=== PATIENT | male | born 1990 | race Caucasian/White ===

== ENCOUNTER 2016-12-18 01:58 | Emergency (ER) | payer OTHER ==
[2016-12-18 02:24] VITALS: BP 135/73; PULSE 75; TEMP 97.5
[2016-12-18] MEDS ORDERED: IBUPROFEN 400 MG TABLET (FP) PO ONE ×2 (02:29→02:36)
[2016-12-18] MEDS ORDERED: PENICILLIN V POTASSIUM 500 MG TABLET PO ONE (02:29)
--- NOTE | 2016-12-18 02:29 | PDOC ---
History of Present Illness - General History Source: Patient <Ayush Marks - Last Filed: 12/18/16 02:31> - General History Source: Patient Exam Limitations: No Limitations - History of Present Illness Initial Comments: 12/18/16 02:37 The patient is a 26 year old male with no significant past medical history who presents to the ED 1 day of toothache. Patient reports pain to tooth number 17, which he describes as throbbing in nature and 10/10, in severity. States he was chewing on a piece of candy when he subsequently broke his tooth. Admits to smoking. Denies fever, chills, or diaphoresis. The patient denies cough, SOB, chest pain, and palpitations. The patient denies abdominal pain, nausea, vomiting, and diarrhea. Allergies: NKDA Social History: Cigarette smoker. No alcohol or drug use reported. Past Surgical History: None reported PCP: Dr. Gino Hernández <Chio Zheng - Last Filed: 12/18/16 02:37> - General Chief Complaint: Toothache Stated Complaint: TOOTHACHE Time Seen by Provider: 12/18/16 02:26 Past History - Psycho/Social/Smoking Cessation Hx Suicidal Ideation: No Smoking History: Never smoked Have you smoked in the past 12 months: No Information on smoking cessation initiated: No Hx Alcohol Use: No Drug/Substance Use Hx: No <Ayush Marks - Last Filed: 12/18/16 02:31> <Chio Zheng - Last Filed: 12/18/16 02:37> - Past Medical History Allergies/Adverse Reactions: Allergies Allergy/AdvReac Type Severity Reaction Status Date / Time No Known Allergies Allergy Verified 12/18/16 02:21 Home Medications: Ambulatory Orders Ibuprofen 800 mg PO TID #30 tablet 12/18/16 Penicillin V Potassium [Pen Vee K -] 500 mg PO TID #30 tablet 12/18/16 Review of Systems - Review of Systems Able to Perform ROS?: Yes Comments:: 12/18/16 02:37 CONSTITUTIONAL: Absent: fever, no chills, no fatigue EYES: Absent: visual changes ENT: +pain to tooth number 17 Absent: ear pain, no sore throat CARDIOVASCULAR: Absent: chest pain, no palpitations RESPIRATORY: Absent: cough, no SOB GI: Absent: abdominal pain, no nausea, no vomiting, no constipation, no diarrhea GENITOURINARY: Absent: dysuria, no frequency, no hematuria MUSCULOSKELETAL: Absent: back pain, no arthralgia, no myalgia SKIN: Absent: rash NEURO: Absent: headache <Katherineana mariaPrakash roqueta - Last Filed: 12/18/16 02:37> *Physical Exam - Vital Signs Last Vital Signs Temp Pulse Resp BP Pulse Ox 97.5 F L 75 14 135/73 100 12/18/16 02:21 12/18/16 02:21 12/18/16 02:21 12/18/16 02:21 12/18/16 02:21 <Ayush Marks - Last Filed: 12/18/16 02:31> - Vital Signs Last Vital Signs Temp Pulse Resp BP Pulse Ox 97.5 F L 75 14 135/73 100 12/18/16 02:21 12/18/16 02:21 12/18/16 02:21 12/18/16 02:21 12/18/16 02:21 - Physical Exam Comments: 12/18/16 02:37 GENERAL: Well-appearing, well-nourished. No apparent distress. HEENT: Normocephalic, atraumatic. PERRL, EOM intact. Tooth 17 appears to be broken, but the surrounding gingiva is intact, no erythema, no drainage, no tenderness. CARDIOVASCULAR: Normal S1, S2. Regular rate and rhythm. PULMONARY: Clear to auscultation bilaterally. ABDOMEN: Soft, non-distended, non-tender. EXTREMITIES: Normal ROM in all four extremities. No gross deformities. SKIN: Warm, dry. No rash NEUROLOGICAL: No focal neurological deficits. <Chio Zheng - Last Filed: 12/18/16 02:37> Medical Decision Making - Medical Decision Making 12/18/16 02:32 Dr. Marks: The scribe's documentation has been prepared under my direction and personally reviewed by me in its entirery. I confirm that the note above accurately reflects all work, treatment, procedures, and medical decision making performed by me. <Ayush Marks - Last Filed: 12/18/16 02:31> *DC/Admit/Observation/Transfer - Discharge Dispostion Admit: No <Ayush Marks - Last Filed: 12/18/16 02:31> - Attestations Scribe Attestion: 12/18/16 02:37 Documentation prepared by Chio Zheng, acting as medical research tech for Ayush Marks MD/DO. <Chio Zheng - Last Filed: 12/18/16 02:37> Diagnosis at time of Disposition: Tooth ache - Discharge Dispostion Disposition: HOME Condition at time of disposition: Stable - Prescriptions Prescriptions: Ibuprofen 800 mg PO TID #30 tablet Penicillin V Potassium [Pen Vee K -] 500 mg PO TID #30 tablet - Referrals Referrals: Gino Hernández [Primary Care Provider] - - Patient Instructions Printed Discharge Instructions: DI for Dental Pain
== END 2016-12-18 02:43 | disposition home or self-care (01) ==
LOC: JER 01:58
DX: K08.89 Other specified disorders of teeth and supporting structures (principal); K03.81 Cracked tooth
CPT/HCPCS: 99282-25

== ENCOUNTER 2017-11-15 00:46 | Emergency (ER) | payer OTHER ==
--- NOTE | 2017-11-15 00:54 | PDOC ---
History of Present Illness - General Stated Complaint: JAW PAIN Time Seen by Provider: 11/15/17 00:53 History Source: Patient Exam Limitations: No Limitations - History of Present Illness Initial Comments: 11/15/17 01:48 Best Contact: Pmhx: Left mandibular fx (2012) Pshx: N/A Allergies: NKDA 27-year-old male presents to the emergency department with his mother complaining of left mandibular pain and swelling after he tripped and fell onto the left side of his jaw but denied any LOC, headaches, dizziness, lightheadedness, facial pains, neck pain/stiffness, back pains, chest pain, shortness of breath, extremity numbness or tingling sensation. Patient states he didn't see the dictated history when he fell times one hour ago. Patient denies any dental pain but states he knows the feeling of mandibular fractures since he had 15 years ago. Past History - Past Medical History Allergies/Adverse Reactions: Allergies Allergy/AdvReac Type Severity Reaction Status Date / Time No Known Allergies Allergy Verified 11/15/17 01:23 - Suicide/Smoking/Psychosocial Hx Smoking History: Never smoked Have you smoked in the past 12 months: No Hx Alcohol Use: No Drug/Substance Use Hx: No Review of Systems - Review of Systems Able to Perform ROS?: Yes Comments:: 11/15/17 01:50 CONSTITUTIONAL: Absent: fever, chills, diaphoresis, generalized weakness, malaise, loss of appetite HEENT: +Left mandibular pain Absent: rhinorrhea, nasal congestion, throat pain, throat swelling, difficulty swallowing, mouth swelling, ear pain, eye pain, visual Changes CARDIOVASCULAR: Absent: chest pain, loss of consciousness, palpitations, irregular heart rate, peripheral edema RESPIRATORY: Absent: cough, shortness of breath, dyspnea with exertion, orthopnea, wheezing, stridor, hemoptysis GASTROINTESTINAL: Absent: abdominal pain, abdominal distension, nausea, vomiting, diarrhea, constipation, melena, hematochezia GENITOURINARY: Absent: dysuria, frequency, urgency, hesitancy, hematuria, flank pain, genital pain MUSCULOSKELETAL: Absent: myalgia, arthralgia, joint swelling SKIN: Absent: rash, itching, pallor Is the patient limited Polish proficient: No *Physical Exam - Physical Exam Comments: 11/15/17 01:51 GENERAL: Well developed, well nourished. Awake and alert. No acute distress. HEENT: +left mandibular pain/swelling Neg dental on palp Normocephalic, atraumatic. PERRLA, EOMI. No conjunctival pallor. Sclera are non- icteric. Moist mucous membranes. Oropharynx is clear. NECK: Supple. Full ROM. No JVD. Carotid pulses 2+ and symmetric, without bruits. No thyromegaly. No lymphadenopathy. CARDIOVASCULAR: Regular rate and rhythm. No murmurs, rubs, or gallops. Distal pulses are 2+ and symmetric. PULMONARY: No evidence of respiratory distress. Lungs clear to auscultation bilaterally. No wheezing, rales or rhonchi. ABDOMINAL: Soft. Non-tender. Non-distended. No rebound or guarding. No organomegaly. Normoactive bowel sounds. MUSCULOSKELETAL Normal range of motion at all joints. No bony deformities or tenderness. No CVA tenderness. EXTREMITIES: No cyanosis. No clubbing. No edema. No calf tenderness. SKIN: Warm and dry. Normal capillary refill. No rashes. No jaundice. NEUROLOGICAL: Alert, awake, appropriate. Cranial nerves 2-12 intact. No deficits to light touch and temperature in face, upper extremities and lower extremities. No motor deficits in the in face, upper extremities and lower extremities. Normoreflexic in the upper and lower extremities. Normal speech. Toes are down- going bilaterally. Gait is normal without ataxia. PSYCHIATRIC: Cooperative. Good eye contact. Appropriate mood and affect. ED Treatment Course - RADIOLOGY Radiology Studies Ordered: Category Date Time Status MANDIBLE COMPLETE [RAD] Stat Radiology 11/15/17 00:53 Ordered Radiograph Interpretation: 11/15/17 01:51 CT facial pain: *DC/Admit/Observation/Transfer Diagnosis at time of Disposition: Mandibular fracture, closed Qualifiers: Encounter type: initial encounter Mandible location: ramus Laterality: left Qualified Code(s): S02.642A - Fracture of ramus of left mandible, initial encounter for closed fracture - Discharge Dispostion Disposition: TRANSFER ACUTE CARE/OTHER HOSP Condition at time of disposition: Stable Admit: No - Referrals Referrals: ON STAFF,NOT [Primary Care Provider] - - Patient Instructions - Post Discharge Activity - Transfer to Acute Care Facility Receiving Facility: [facility] Progress Note - Progress Note Progress Note: 0251hrs: Called [facility] transfer line [phone] for OMFS transfer 0334hrs: Spoke to Johnny Basurto/[facility], will accept. Ask to give pt options: 1) outpt clinic on ThursdayNovember 18 2) Transfer now to [facility] for [facility] consult 3) Have pt go themselves to [facility] and be seen by Plastics 0342hrs: Pt will agree to transfer to [facility] for OMFS consult 0355hrs: Spoke to Dr. Noe/ ED isabel Attending 0357hrs: Erika from [facility] transfer center called and says BLS will arrive in ~45 mins
[2017-11-15 01:23] VITALS: BMI 26.6
[2017-11-15 06:29] VITALS: BP 145/82; PULSE 89; TEMP 98.1
[2017-12-30] MEDS ORDERED: ALBUTEROL SO4 2.5/IPRATROPIUM 0.5 INH SOL 3 ML VIAL.NEB. NEB ONE (13:22)
== END 2017-11-15 06:21 | disposition short-term general hospital (02) ==
LOC: JER 00:46
DX: S02.642A Fracture of ramus of left mandible, initial encounter for closed fracture (principal); W18.39XA Other fall on same level, initial encounter; Y93.02 Activity, running; Y92.89 Other specified places as the place of occurrence of the external cause; Y99.8 Other external cause status
CPT/HCPCS: 70486-TC; 99282-25; 99283-25